=== PATIENT | female | born 1965 | race Caucasian/White ===

== ENCOUNTER 2023-10-24 13:48 | Emergency (ER) | payer OTHER, SELFPAY ==
[2023-10-24] VITALS (12 sets, daily range): BP systolic 92–127; BP diastolic 54–77; PULSE 104–119; RESP 12–31; TEMP 37.5–37.7; O2SAT 84–98; BMI 41.5
--- NOTE | 2023-10-24 14:14 | CTR_ITS ---
PROCEDURE INFORMATION: Exam: CT Head Without Contrast Exam date and time: 10/24/2023 3:40 PM Age: 58 years old Clinical indication: Altered mental status/memory loss; Additional info: AMS TECHNIQUE: Imaging protocol: Computed tomography of the head without contrast. Radiation optimization: All CT scans at this facility use at least one of these dose optimization techniques: automated exposure control; mA and/or kV adjustment per patient size (includes targeted exams where dose is matched to clinical indication); or iterative reconstruction. COMPARISON: No relevant prior studies available. RADIATION DOSE METRICS: Total DLP (mGy-cm): 875.65 FINDINGS: Brain: Normal. No hemorrhage. Unremarkable white matter. No mass effect. Cerebral ventricles: No ventriculomegaly. Paranasal sinuses: Visualized sinuses are unremarkable. No fluid levels. Mastoid air cells: Visualized mastoid air cells are well aerated. Bones: Unremarkable. No acute fracture. Soft tissues: Unremarkable. CT/CT head wo con* [id number] IMPRESSION: No acute intracranial abnormality.
--- NOTE | 2023-10-24 14:14 | XR_ITS ---
WS: [id number] Exam: XR chest 1V portable [id number] Date/Time of Exam: 10/24/2023 2:18 PM Reason For Exam: Possible Sepsis No priors. The lungs are clear and fully inflated. Normal cardiomediastinal silhouette. No pleural effusions. Un remarkable bony elements. XR/XR chest 1V portable [id number] IMPRESSION: 1. Negative chest.
--- NOTE | 2023-10-24 14:17 | ECG_ITS ---
[facility] Test Date: 2023-10-24 Pat Name: Ary Ambriz Department: Room: Gender: Female Assistant Store Director: : 1965 Requested By: Meg Lucas Order Number: [id number] Heidi MD: Isamar Foreman M.D. Measurements Intervals [place] Rate: 123 P: 31 MD: 152 QRS: -22 QRSD: 133 T: 128 QT: 304 QTc: 435 Interpretive Statements SINUS TACHYCARDIA LEFT BUNDLE BRANCH BLOCK [120+ ms QRS DURATION, 80+ ms Q/S IN V1/V2, 85+ ms R IN I/aVL/V5/V6] No previous ECG available for comparison Electronically Signed On 10-24-2023 18:30:35 CDT by Isamar Foreman M.D. [id number]
--- NOTE | 2023-10-24 14:25 | ED_ITS ---
HPI - General Adult 2 General: Chief complaint: General Medical Stated complaint: MHE Time Seen by Provider: 10/24/23 13:59 Source: patient Mode of arrival: ambulatory Limitations: no limitations History of Present Illness: 58-year-old female who is here with husb and stating that she has not felt well the last 2 days states she has been having generalized weakness low-grade fevers and some confusion patient here is able to answer most questions but is disoriented to time she answers 2020 when asked the year. She denies any pain anywhere denies any headache. No focal deficits Associated symptoms: Reports confusion; Deny chest pain, dyspnea, headache(s), nausea, rash or vomiting Related Data Allergies Allergy/AdvReac Type Severity Reaction Status Date / Time No Known Allergies Allergy Verified 10/24/23 14:05 Review of Systems 2 Const: Reports: fever(s), chills, body aches and fatigue; Denies: change in appetite Eyes: Denies: blurry vision or eye discomfort ENMT: Denies: throat pain or dental pain Card: Denies: chest pain Resp: Denies: dyspnea GI: Denies: abdominal pain, nausea, vomiting or diarrhea : Denies: dysuria Musc: Denies: neck pain or back pain Skin/Breast: Denies: rash Neuro: Reports: confusion; Denies: headache(s) Physical Exam 2 Const: COMMON NORMALS: alert EXAM LIMITATIONS: altered mental status O RIENTATION/CONSCIOUSNESS: Yes oriented to person and Yes oriented to place; not oriented to time HENMT: COMMON NORMALS: normocephalic and atraumatic HEAD & SCALP: n ormocephalic and atraumatic Eye: COMMON NORMALS: Equal, round and reactive pupils present and EOMs intact bilaterally PUPIL: Yes Equal, round and reactive pupils present Neck/C-Spine: COMMON NORMALS: full ROM and supple Chest: COMMONS NORMALS: normal inspection of the chest and normal palpation of entire chest wall Resp: COMMON NORMALS: normal respiratory effort, No retractions, No use of accessory muscles and clear to auscultation bilaterally AUSCULTATION: clear to auscultation bilaterally Cardio: COMMON NORMALS: regular rate, regular rhythm and No murmurs present (Cardio) RATE: regular rate RHYTHM: regular rhythm GI: COMMON NORMALS: Normal to inspection, nondistended, normoactive bowel sounds present, Soft to palpation, non-tender and no masses PALPATION: Yes Soft to palpation Extremity: COMMON NORMALS: normal to inspection and full ROM Neuro: COMMON NORMALS: moves all extremities and no focal motor deficits S ENSORIUM/ORIENTATION: Yes alert, Yes oriented to person, Yes oriented to place and No oriented to time CRANIAL NERVES: Yes CN normal except as noted S PEECH: speech normal Psych: COMMON NORMALS: Normal thought process present and cooperative T HOUGHT PROCESS: Normal thought process present Skin: COMMON NORMALS: no rashes or lesions noted and no wounds GENERAL SKIN EXAM: no rashes or lesions noted Course 2 Vital Signs: Vital signs: Vital Signs Temperature 99.5 F 10/24/23 21:00 Pulse Rate 106 H 10/24/23 22:00 Respiratory Rate 16 10/24/23 22:00 Blood Pressure 104/68 10/24/23 22:00 Pulse Oximetry 97 10/24/23 22:00 Oxygen Delivery Me thod Room Air 10/24/23 22:00 MDM - General Adult Medical Decision Making Patient presents here with fever lethargy she is found to have cholecystitis she has elevated liver enzymes concerning for ascending cholangitis I did speak to our surgeon on-call here Dr. Fair recommended transfer to [facility] for likely ERCP I did speak to [facility] was accepted the ICU there will transfer. Patient was given IV fluid boluses here along with antibiotics and started on Levophed. Patient had a delay on fluids and antibiotics as she had ripped out original IV and then was a difficult stick for another IV Medical Records I reviewed the patient's medical records. Lab Data I reviewed the patient's lab results. 10/24/23 16:14 10/24/23 16:[address] 10/24/23 14:14 IMPRESSION: No acute intracranial abnormality. Gallbladder Ultrasound 10/24/23 17:07 IMPRESSION: Cholelithiasis with sonographic findings consistent with acute cholecystitis. Chest X-Ray 10/24/23 17:45 IMPRESSION: Right central line terminates in the proximal right atrium. Abdomen/Pelvis CT 10/24/23 17:48 IMPRESSION: 1. Redemonstrated findings consistent with acute cholecystitis. 2. Hepatic steatosis. Laboratory Results WBC 5.50 10^3/uL (3.29-11.43) 10/24/23 16:14 RBC 4.77 10^6/uL (3.85-5.65) 10/24/23 16:14 Hgb 13.70 g/dL (11.27-16.99) 10/24/23 16:14 Hct 40.7 % (36-47) 10/24/23 16:14 MCV 85.3 fl (85-98) 10/24/23 16:14 MCH 28.7 pg (27-33) 10/24/23 16:14 MCHC 33.7 g/dL (30-55) 10/24/23 16:14 RDW 12.8 % (12.1-15.1) 10/24/23 16:14 Plt Count 47 10^3/cmm (157-399) L 10/24/23 16:14 MPV 9.7 fL (7.4-10.4) 10/24/23 16:14 Lymph % (Auto) Not Reportable 10/24/23 16:14 [place] % (Auto) Not Reportable 10/24/23 16:14 Lymph # (Auto) Not Reportable 10/24/23 16:14 [place] # (Auto) Not Reportable 10/24/23 16:14 Total Counted 100 (0-100) 10/24/23 16:14 Atypical Lymphs % 0.0 % (0-5) 10/24/23 16:14 Absolute Neutrophils 4.3 10^3/cmm (1.4-6.5) 10/24/23 16:14 Segmented Neutrophils 52 % 10/24/23 16:14 Abs Segm Neuts (Man) 2.9 10/cmm (1.6-7.1) 10/24/23 16:14 Band Neutrophils 26.0 % 10/24/23 16:14 Abs Band Neuts (Man) 1.4 10^3/cmm (0.0-1.2) H 10/24/23 16:14 Absolute Lymphocytes 0.3 10^3/cmm (1.2-3.4) L 10/24/23 16:14 Lymphocytes (Manual) 5 % 10/24/23 16:14 Monocytes (Manual) 8.0 % 10/24/23 16:14 Absolute Monocytes 0.4 10^3/cmm (0.1-0.6) 10/24/23 16:14 Eosinophils (Manual) 0 % 10/24/23 16:14 Absolute Eosinophils 0.0 10^3/cmm (0.0-0.7) 10/24/23 16:14 Basophils (Manual) 0.0 % 10/24/23 16:14 Absolute Basophils 0.0 10^3/cmm (0.0-0.2) 10/24/23 16:14 Metamyelocytes 4.0 % 10/24/23 16:14 Myelocytes 4.0 % 10/24/23 16:14 Promyelocytes 1.0 % 10/24/23 16:14 Platelet Estimate Decreased (Normal) L 10/24/23 16:14 PT 22.80 SECONDS (12.1-14.9) H 10/24/23 16:14 INR 1.94 (0.8-1.2) H 10/24/23 16:14 Sodium 132 mmol/L (136-145) L 10/24/23 16:14 Potassium 3.8 mmol/L (3.5-5.1) 10/24/23 16:14 Chloride 93 mmol/L (98-107) L 10/24/23 16:14 Carbon Dioxide 17 mmol/L (22-29) L 10/24/23 16:14 Anion Gap 25.8 (5-19) H 10/24/23 16:14 BUN 33 mg/dL (6-20) H 10/24/23 16:14 Creatinine 2.6 mg/dL (0.5-0.9) H 10/24/23 16:14 GFR Calculation 19.0 mL/min (90-130) L 10/24/23 16:14 Glucose 157 mg/dL (65-115) H 10/24/23 16:14 Calculated Osmolality 285 mOsm/kg (285-295) 10/24/23 16:14 Lactic Acid 8.5 mmol/L (0.5-2.2) H* 10/24/23 16:14 Lactic Acid (Sepsis) 8.2 mmol/L (0.5-2.2) H* 10/24/23 20:57 Calcium 8.3 mg/dL (8.5-10.5) L 10/24/23 16:14 Total Bilirubin 1.7 mg/dL (0.15-1.2) H 10/24/23 16:14 AST 2614 U/L (0-32) H 10/24/23 16:14 ALT 1600 U/L (0-33) H 10/24/23 16:14 Alkaline Phosphatase 64 U/L (35-105) 10/24/23 16:14 Total Protein 6.8 g/dL (6.6-8.7) 10/24/23 16:14 Albumin 3.8 g/dL (3.5-5.2) 10/24/23 16:14 Globulin 3.0 g/dL (1.3-4.6) 10/24/23 16:14 Lipase 11 U/L (13-60) L 10/24/23 16:14 Urine Color [place] (Yellow) A 10/24/23 17:02 Urine Appearance Turbid (CLEAR) A 10/24/23 17:02 Urine pH 5.0 (5-7) 10/24/23 17:02 Ur Specific [place] 1.020 (1.005-1.030) 10/24/23 17:02 Urine Protein 2+ (Negative) A 10/24/23 17:02 Urine Glucose (UA) Negative (Normal) 10/24/23 17:02 Urine Ketones Trace (Negative) 10/24/23 17:02 Urine Blood 2+ (Negative) A 10/24/23 17:02 Urine Nitrate Negative (Negative) 10/24/23 17:02 Urine Bilirubin 1+ (Negative) H 10/24/23 17:02 Urine Urobilinogen 1.0 mg/dL (Negative) 10/24/23 17:02 Ur Leukocyte Esterase Negative (Negative) 10/24/23 17:02 Urine RBC 5-10 /hpf (0-2) H 10/24/23 17:02 Urine WBC 5-10 /hpf (0-5) H 10/24/23 17:02 Ur Squamous Epith Cells 15-25 /hpf (0-5) H 10/24/23 17:02 Amorphous Sediment 1+ /hpf 10/24/23 17:02 Urine Bacteria 2+ /hpf (NONE) H 10/24/23 17:02 Hyaline Casts 5-10 /lpf H 10/24/23 17:02 Coarse Granular Casts 5-10 /lpf H 10/24/23 17:02 Hepatitis A IgM Ab Non-reactive (Nonreactive) 10/24/23 16:14 Hep Bs Antigen Non-reactive (Nonreactive) 10/24/23 16:14 Hep Bs Antibody < 3.5 (11.5-1000) L 10/24/23 16:14 Hep B Core Total Ab Non-reactive (Nonreactive) 10/24/23 16:14 Hepatitis C Antibody Non-reactive (Nonreactive) 10/24/23 16:14 SARS-CoV-2 Ag (Rapid) Negative (Negative) 10/24/23 16:54 All radiology interpretation(s) finalized by discharge EKG Data EKG 1: I personally reviewed and interpreted this EKG as follows: EKG interpretation date: 10/24/23 EKG interpretation time: 14:17 Interpretation: sinus tach hr 123 LBBB qrs 133 qtc 377 Computer generated interpretation: Head CT 10/24/23 14:14 IMPRESSION: No acute intracranial abnormality. Gallbladder Ultrasound 10/24/23 17:07 IMPRESSION: Cholelithiasis with sonographic findings consistent with acute cholecystitis. Chest X-Ray 10/24/23 17:45 IMPRESSION: Right central line terminates in the proximal right atrium. Abdomen/Pelvis CT 10/24/23 17:48 IMPRESSION: 1. Redemonstrated findings consistent with acute cholecystitis. 2. Hepatic steatosis. Critical Care Time 2 Critical Care Time: Critical Care Time: Yes Total Critical Care Time: 65 Attestation: The high probability of a clinically significant, sudden or life threatening deterioration of the patient's gi system(s) required my full and direct attention, intervention and personal management. The critical care time is as shown. This time is in addition to time spent performing any reported procedures but includes the following: [x] Data and vital sign review and interpretation [x] Patient assessment, examination and intervention [x] Documentation [x] Medication orders and management Discharge Plan Discharge Patient Disposition: Xfer Short-Term Hosp Clinical Impression: Acute cholecystitis, Ascending cholangitis Condition: Stable Coding Level of Care Code ED Religious Education Teacher for Gavi Mallory
[2023-10-24] MEDS: acetaminophen 500 mg Tablet 1000 MG PO (16:21)
[2023-10-24 16:27] LABS: Hematocrit 40.7 % (36-47); Mean Corpuscular HGB Conc 33.7 g/dL (30-55); Mean Corpuscular Hemoglobin 28.7 pg (27-33); Mean Corpuscular Volume 85.3 fl (85-98); Mean Platelet Volume 9.7 fL (7.4-10.4); Platelet Count 47 10^3/cmm (157-399); Red Blood Count 4.77 10^6/uL (3.85-5.65); Red Cell Distribution Width 12.8 % (12.1-15.1)
[2023-10-24 16:40] LABS: INR 1.94 (0.8-1.2)
[2023-10-24 16:44] LABS: Albumin Level 3.8 g/dL (3.5-5.2); Alkaline Phosphatase 64 U/L (35-105); Anion Gap 25.8 (5-19); Blood Urea Nitrogen 33 mg/dL (6-20); Calcium 8.3 mg/dL (8.5-10.5); Carbon Dioxide 17 mmol/L (22-29); Chloride 93 mmol/L (98-107); Creatinine Clr Calc Pharmacy 25.8518; Glucose 157 mg/dL (65-115); Osmolality Calculated 285 mOsm/kg (285-295); Potassium 3.8 mmol/L (3.5-5.1); Sodium 132 mmol/L (136-145); Total Bilirubin 1.7 mg/dL (0.15-1.2); Total Protein 6.8 g/dL (6.6-8.7)
[2023-10-24 16:48] LABS: Lactic Sepsis W/Reflex 8.5 mmol/L (0.5-2.2)
[2023-10-24 16:56] LABS: Alanine Aminotransferase 1600 U/L (0-33)
[2023-10-24 16:59] LABS: Absolute Neutrophil 4.3 10^3/cmm (1.4-6.5); Absolute Segmented Neutrophil 2.9 10/cmm (1.6-7.1); Band Neutrophils Absolute 1.4 10^3/cmm (0.0-1.2); Eosinophils 0 %; Lymphocytes 5 %; Lymphocytes Absolute 0.3 10^3/cmm (1.2-3.4); Monocytes Absolute 0.4 10^3/cmm (0.1-0.6); Platelet Estimate Decreased (Normal); Segmented Neutrophils 52 %; Slide Review Slide Review Perform; Total Cells Counted 100 (0-100)
[2023-10-24 17:03] LABS: Aspartate Amino Transferase 2614 U/L (0-32)
--- NOTE | 2023-10-24 17:07 | USR_ITS ---
PROCEDURE INFORMATION: Exam: US Abdomen, Limited; Right Upper Quadrant Exam date and time: 10/24/2023 7:54 PM Age: 58 years old Clinical indication: Abdominal pain; Localized; Right upper quadrant (ruq); Prior surgery; Surgery date: 6+ months; Surgery type: Unsure of dates. Patient says she has had an abdominal hernia repair. ; Additional info: Ruq pain TECHNIQUE: Imaging protocol: Real time ultrasound of the abdomen with image documentation. Limited exam focused on the right upper quadrant. COMPARISON: No relevant prior studies available. FINDINGS: Liver: No masses. Gallbladder: Multiple shadowing gallstones in the gallbladder. Gallbladder wall thickening up to 8 mm. Biliary ducts: The common bile duct measures 6 mm within normal limits. Pancreas: Poorly visualized due to overlying bowel gas. Right kidney: Right kidney measures 11.2 cm in length. No mass. No hydronephrosis. US/US gall bladder [id number] IMPRESSION: Cholelithiasis with sonographic findings consistent with acute cholecystitis.
[2023-10-24 17:17] LABS: Lipase 11 U/L (13-60)
[2023-10-24] MEDS: vancomycin 1,000 MG in sodium chloride 0.9% 250 ML 250 MG IV (17:41)
[2023-10-24] MEDS: piperacillin-tazobactam 3.375 GM in sodium chloride 0.9% (plus) 50 ML IV (17:41)
--- NOTE | 2023-10-24 17:45 | XRR_ITS ---
PROCEDURE INFORMATION: Exam: XR Chest Exam date and time: 10/24/2023 5:47 PM Age: 58 years old Clinical indication: Other vascular access device placement or adjustment; Central line, non-tunnelled; Patient HX: Check S/P central line placement TECHNIQUE: Imaging protocol: Radiologic exam of the chest. Views: 1 view. COMPARISON: CR XR chest 1V portable [id number] 10/24/2023 2:21 PM FINDINGS: Tubes, catheters and devices: Right central line terminates in the proximal right atrium. Lungs: Unremarkable. No consolidation. Pleural spaces: Unremarkable. No pleural effusion. No pneumothorax. Heart/Mediastinum: Unremarkable. No cardiomegaly. Bones/joints: Unremarkable. XR/XR chest 1V portable [id number] IMPRESSION: Right central line terminates in the proximal right atrium.
--- NOTE | 2023-10-24 17:48 | CTR_ITS ---
PROCEDURE INFORMATION: Exam: CT Abdomen And Pelvis Without Contrast Exam date and time: 10/24/2023 8:26 PM Age: 58 years old Clinical indication: Abnormal findings; Abnormal lab test; Abnormal kidney function lab tests and elevated liver enzymes; Patient HX: Hypotensive with ck and high liver enzymes. Ast 2614/alt 1600. Lactic acid 8.5. TECHNIQUE: Imaging protocol: Computed tomography of the abdomen and pelvis without contrast. Radiation optimization: All CT scans at this facility use at least one of these dose optimization techniques: automated exposure control; mA and/or kV adjustment per patient size (includes targeted exams where dose is matched to clinical indication); or iterative reconstruction. COMPARISON: US gall bladder [id number] 10/24/2023 7:54 PM RADIATION DOSE METRICS: Total DLP (mGy-cm): 989.98 FINDINGS: Liver: 3.2 cm simple cyst noted in the left hepatic lobe. Hepatic steatosis. Gallbladder and biliary ducts: Calcified stones noted within the gallbladder with inflammatory changes at the gallbladder fossa. No ductal dilation. Pancreas: Normal. No ductal dilation. Spleen: Normal. No splenomegaly. Adrenal glands: Normal. No mass. Kidneys and ureters: Normal. No hydronephrosis. Stomach and bowel: Unremarkable. No obstruction. No mucosal thickening. Appendix: No evidence of appendicitis. Intraperitoneal space: Unremarkable. No free air. No significant fluid collection. Vasculature: Unremarkable. No abdominal aortic aneurysm. Lymph nodes: Unremarkable. No enlarged lymph nodes. Urinary bladder: Unremarkable as visualized. Reproductive: Unremarkable as visualized. Bones/joints: No acute fracture. Soft tissues: Unremarkable. CT/CT abdomen pelvis wo con [id number] IMPRESSION: 1. Redemonstrated findings consistent with acute cholecystitis. 2. Hepatic steatosis.
[2023-10-24] MEDS: norepinephrine 4 MG/250 ML BAG 30 MG IV (17:58)
[2023-10-24] MEDS: norepinephrine 4 MG/250 ML BAG 37.5 MG IV (17:59)
[2023-10-24 18:08] LABS: Reflex Lactate Order REFLEX LACTIC ORDERD
[2023-10-24 18:11] LABS: Hepatitis A Antibody IgM Non-Reactive (Nonreactive); Hepatitis B Core AB, Total Non-Reactive (Nonreactive); Hepatitis B Surface AB < 3.5 (11.5-1000); Hepatitis B Surface Antigen Non-Reactive (Nonreactive); Hepatitis C Virus Antibody Non-Reactive (Nonreactive)
[2023-10-24 18:36] LABS: Charge for UA Resulting for Rev
[2023-10-24 18:43] LABS: Bilirubin Urine 1+ (Negative); Blood Urine 2+ (Negative); Glucose Urine UA Negative (Normal); Ketones Urine Trace (Negative); Leukocyte Esterase Urine Negative (Negative); Nitrate Urine Negative (Negative); Protein Urine 2+ (Negative); Urine Appearance Turbid (CLEAR)
[2023-10-24 18:45] LABS: Urine Color Orange (Yellow)
--- NOTE | 2023-10-24 18:53 | PC.NURSE ---
patient straight cath'd for urine. no complications.
[2023-10-24 18:59] LABS: SARS Covid-2 Antigen Negative (Negative)
[2023-10-24 19:07] LABS: Amorphous Sediment Urine 1+ /hpf; Bacteria Urine 2+ /hpf; Squamous Epithelial Cell Urine 15-25 /hpf (0-5); UA Manual Slide Review YES; UA Slide Review UA Slide Review Perf
--- NOTE | 2023-10-24 20:49 | P.HP_ITS ---
Providers/Chief Complaint 2 Chief Complaint: MHE History of Present Illness Ary Ambriz is a 58 year old female Medications/Allergies Allergies Allergy/AdvReac Type Severity Reaction Status Date / Time No Known Allergies Allergy Verified 10/24/23 14:05 Vitals/I&O/Wt Last Vital Signs Temp 99.9 F H 10/24/23 13:52 Pulse 107 H 10/24/23 20:48 Resp 22 H 10/24/23 20:48 BP 103/63 10/24/23 20:48 Pulse Ox 97 10/24/23 20:48 O2 Del Method Nasal Cannula 10/24/23 18:43 10/24/23 10/24/23 10/24/23 06:59 14:59 22:59 Intake Total 33.625 / 33.625 Balance 33.625 / 33.625 Weight last 48 hrs Weight 99.79 kg Data 10/24/23 16:14 10/24/23 16:14 Micro: Microbiology 10/24/23 16:14 Blood Culture - Preliminary Blood SPECIMEN COLLECTED 10/24/23 15:16 Blood Culture - Preliminary Blood SPECIMEN COLLECTED Coding Level of Care Code Acute Code for Chg Fwd
[2023-10-24 21:31] LABS: Lactic Acid level (Lactate) 8.2 mmol/L (0.5-2.2)
[2023-10-24] MEDS: sodium chloride 0.9% 1,000 ML 125 ML IV (21:42)
[2023-10-24 22:41] LABS: ABG PCO2 25.5 mmHg (35-45); ABG PH Result 7.31 (7.35-7.45); Arterial Blood Gas Hematocrit 38.5 % (37-47); Base Excess ABG -11.6 mmol/L (-2.0-2.0); Blood Gas Allen Test Pos; Blood Gas Sample Site Radial, right; Blood Gas Sample Type Arterial; HCO3 ABG 12.9 mmol/L (22-26); Oxygen Device ROOM AIR; PO2 ABG 74.4 mmHg (80.0-100.0)
[2023-10-24] MEDS: norepinephrine 4 MG/250 ML BAG 52.5 MG IV (22:49)
[2023-10-24] MEDS: morphine 4 mg/mL SDV 1 mL 2 MG IVP (23:45)
[2023-10-25] MEDS: piperacillin-tazobactam 3.375 GM in sodium chloride 0.9% (plus) 50 ML IV (00:11)
== END 2023-10-25 01:28 | disposition critical access hospital (66) ==
PROVIDERS: Emergency Medicine; Emergency Provider Emergency Medicine
DX: K81.0 Acute cholecystitis (principal); K83.09 Other cholangitis; R00.0 Tachycardia, unspecified; I44.7 Left bundle-branch block, unspecified; Z11.52 Encounter for screening for COVID-19
CPT/HCPCS: 36415; 36600; 70450; 71045; 74176; 76705; 80053; 81003; 81015; 82803; 83605; 83690; 85007; 85025; 85610; 86705; 86706; 86709; 86803; 87040; 87340; 87426; 93005; 96365; 96366; 96375; 99285; J2270; J2543; J3370; J7030; J7050

== ENCOUNTER 2024-05-27 18:11 | Emergency (ER) | payer OTHER, SELFPAY ==
[2024-05-27 18:14] VITALS: BP 130/74; PULSE 58; RESP 16; TEMP 36.7; O2SAT 95; BMI 35.9
[2024-05-27 18:19] VITALS: BP 130/74; PULSE 63; RESP 16; O2SAT 97
--- NOTE | 2024-05-27 18:22 | XRR_ITS ---
PROCEDURE INFORMATION: Exam: XR Chest Exam date and time: 05/27/2024 6:22 PM Age: 59 years old Clinical indication: Other: Syncope TECHNIQUE: Imaging protocol: Radiologic exam of the chest. Views: 1 view. COMPARISON: CR XR chest 1V portable [id number] 10/24/2023 2:21 PM FINDINGS: Lungs: Unremarkable. No consolidation. Pleural spaces: Unremarkable. No pleural effusion. No pneumothorax. Heart/Mediastinum: Unremarkable. No cardiomegaly. Bones/joints: Unremarkable. XR/XR chest 1V portable [id number] IMPRESSION: No acute findings.
--- NOTE | 2024-05-27 18:22 | ECG_ITS ---
[facility] Test Date: 2024-05-27 Pat Name: Ary Ambrzi Department: Room: Gender: Female Call Manager: : 1965 Requested By: Avila Olivares Order Number: [id number] Gordon MD: Chris Ramon M.D. Measurements Intervals [place] Rate: 57 P: 41 RI: 171 QRS: -19 QRSD: 144 T: 48 QT: 423 QTc: 414 Interpretive Statements SINUS BRADYCARDIA LEFT BUNDLE BRANCH BLOCK [120+ ms QRS DURATION, 80+ ms Q/S IN V1/V2, 85+ ms R IN I/aVL/V5/V6] Compared to ECG 10/24/2023 14:17:07 Sinus tachycardia no longer present Electronically Signed On 05-29-2024 18:19:53 CDT by Chris Ramon M.D. [email or web address]
--- NOTE | 2024-05-27 18:26 | W.ED.SYNCOPE ---
HPI - Syncope General: Chief Complaint: Syncope Stated Complaint: near syncope Time Seen by Provider: 05/27/24 18:18 History of Present Illness: Patient presents to the ER with a near syncopal episode. Patient was sitting at a restaurant when she felt lightheaded dizzy felt she will pass out but she did not pass out. She is all back to normal now. Patient did states she had to the tips of her fingers removed today at [facility] in [place].. She said this was due to her being septic and on pressors during her previous stay. Patient has no history of syncope denies any nausea vomiting diarrhea constipation fevers chills cough cold sore throats etc. Related Data Allergies Allergy/AdvReac Type Severity Reaction Status Date / Time No Known Allergies Allergy Verified 10/24/23 14:05 Review of Systems General: Reports: 10 or more systems reviewed and unremarkable except in HPI and below Physical Exam Const: COMMON NORMALS: no acute distress, average body habitus, patient oriented x3, no limitations, healthy appearing, alert and well nourished HENMT: COMMON NORMALS: normocephalic, hearing grossly normal bilaterally, external ears normal, Normal external nose present, moist oral mucous membranes and oropharynx normal HEAD & SCALP: normocephalic NOSE: Normal external nose present EXTERNAL EAR: Yes external ears normal Neck/C-Spine: COMMON NORMALS: full ROM, no lymphadenopathy, supple, no meningeal signs, no JVD and Thyroid normal THYROID: Thyroid normal Chest: COMMONS NORMALS: normal inspection of the chest and normal palpation of entire chest wall Resp: COMMON NORMALS: normal respiratory effort, No retractions, No use of accessory muscles and clear to auscultation bilaterally AUSCULTATION: clear to auscultation bilaterally Cardio: COMMON NORMALS: no JVD, regular rate, regular rhythm, S1 normal heart sound present, S2 normal heart sound present, No gallops present (Cardio), No clicks present (Cardio), No murmurs present (Cardio) and No rub (Cardio) RATE: regular rate RHYTHM: regular rhythm HEART SOUNDS: S1 normal heart sound present and S2 normal heart sound present GI: COMMON NORMALS: Normal to inspection, nondistended, normoactive bowel sounds present, Soft to palpation, non-tender, No hepatosplenomegaly present and no masses PALPATION: Yes Soft to palpation and Yes No hepatosplenomegaly present Neuro: COMMON NORMALS: patient oriented x3 SENSORIUM/ORIENTATION: Yes alert MENINGEAL SIGNS: Yes no meningeal signs Course Vital Signs: Vital signs: Vital Signs Temperature 98.1 F 05/27/24 18:14 Pulse Rate 59 L 05/27/24 19:49 Respiratory Rate 16 05/27/24 18:19 Blood Pressure 134/78 05/27/24 19:49 Pulse Oximetry 98 05/27/24 19:49 Oxygen Delivery Me thod Room Air 05/27/24 18:19 MDM - Syncope Medical Decision Making Lab work was reviewed as well as chest x-ray, EKG all essentially benign. Patient not have any episodes while she was here. Discussed the results with her and her . Patient be discharged home. Medical Records I reviewed the patient's medical records. Lab Data I reviewed the patient's lab results. 05/27/24 18:35 05/27/24 18:35 Radiology Impressions Chest X-Ray 05/27/24 18:22 IMPRESSION: No acute findings. Laboratory Results WBC 7.40 10^3/uL (3.29-11.43) 05/27/24 18:35 RBC 4.27 10^6/uL (3.85-5.65) 05/27/24 18:35 Hgb 12.00 g/dL (11.27-16.99) 05/27/24 18:35 Hct 37.3 % (36-47) 05/27/24 18:35 MCV 87.4 fl (85-98) 05/27/24 18:35 MCH 28.1 pg (27-33) 05/27/24 18:35 MCHC 32.2 g/dL (30-55) 05/27/24 18:35 RDW 12.8 % (12.1-15.1) 05/27/24 18:35 Plt Count 253 10^3/cmm (157-399) 05/27/24 18:35 MPV 9.2 fL (7.4-10.4) 05/27/24 18:35 Neut % (Auto) 73.3 % 05/27/24 18:35 Lymph % (Auto) 18.0 % 05/27/24 18:35 Mccormick % (Auto) 6.5 % 05/27/24 18:35 Eos % (Auto) 0.9 % 05/27/24 18:35 Baso % (Auto) 0.8 % 05/27/24 18:35 Neut # (Auto) 5.42 10^3/uL (1.8-7.7) 05/27/24 18:35 Lymph # (Auto) 1.3 10^3/uL (0.8-4.8) 05/27/24 18:35 Mccormick # (Auto) 0.5 10^3/uL (0.2-0.9) 05/27/24 18:35 Eos # (Auto) 0.1 10^3/uL (0.0-0.8) 05/27/24 18:35 Baso # (Auto) 0.1 10^3/uL (0.0-0.1) 05/27/24 18:35 Nucleated RBC % (auto) 0 % 05/27/24 18:35 Nucleated RBCs # 0.0 /100WBC 05/27/24 18:35 Sodium 139 mmol/L (136-145) 05/27/24 18:35 Potassium 4.4 mmol/L (3.5-5.1) 05/27/24 18:35 Chloride 102 mmol/L (98-107) 05/27/24 18:35 Carbon Dioxide 24 mmol/L (22-29) 05/27/24 18:35 Anion Gap 17.4 (5-19) 05/27/24 18:35 BUN 16 mg/dL (6-20) 05/27/24 18:35 Creatinine 1.0 mg/dL (0.5-0.9) H 05/27/24 18:35 GFR Calculation 56.9 mL/min (90-130) L 05/27/24 18:35 Glucose 132 mg/dL (65-115) H 05/27/24 18:35 POC Glucose 133 mg/dL (70-110) H 05/27/24 18:30 Calculated Osmolality 291 mOsm/kg (285-295) 05/27/24 18:35 Calcium 9.4 mg/dL (8.5-10.5) 05/27/24 18:35 Magnesium 1.9 mg/dL (1.7-2.3) 05/27/24 18:35 Total Bilirubin 0.3 mg/dL (0.15-1.2) 05/27/24 18:35 AST 19 U/L (0-32) 05/27/24 18:35 ALT 20 U/L (0-33) 05/27/24 18:35 Alkaline Phosphatase 88 U/L (35-105) 05/27/24 18:35 Troponin T Baseline 7 ng/L (0-10) 05/27/24 18:35 Total Protein 6.7 g/dL (6.6-8.7) 05/27/24 18:35 Albumin 4.5 g/dL (3.5-5.2) 05/27/24 18:35 Globulin 2.2 g/dL (1.3-4.6) 05/27/24 18:35 Urine Color Yellow (Yellow) 05/27/24 19:28 Urine Appearance Clear (CLEAR) 05/27/24 19:28 Urine pH 6.5 (5-7) 05/27/24 19:28 Ur Specific Shidler 1.015 (1.005-1.030) 05/27/24 19:28 Urine Protein Neg (Negative) 05/27/24 19:28 Urine Glucose (UA) Norm (Normal) 05/27/24 19:28 Urine Ketones Negative (Negative) 05/27/24 19:28 Urine Blood Neg (Negative) 05/27/24 19:28 Urine Nitrate Negative (Negative) 05/27/24 19:28 Urine Bilirubin Neg (Negative) 05/27/24 19:28 Urine Urobilinogen Norm mg/dL (Negative) 05/27/24 19:28 Ur Leukocyte Esterase Negative (Negative) 05/27/24 19:28 Urine RBC 0-2 /hpf (0-2) 05/27/24 19:28 Urine WBC 11-20 /hpf (0-5) H 05/27/24 19:28 Ur Squamous Epith Cells 0-5 /hpf (0-5) 05/27/24 19:28 Amorphous Sediment Not Reportable 05/27/24 19:28 Urine Bacteria None seen /hpf (NONE) 05/27/24 19:28 Hyaline Casts 1.65 /lpf 05/27/24 19:28 All radiology interpretation(s) finalized by discharge Discharge Plan Discharge Patient Disposition: Home Clinical Impression: Pre-syncope Condition: Stable Discharge Orders: Discharge ED (Routine); Ordered 05/27/24 Ordered By: Avila Olivares Referrals: Anuradha Glover MD [Primary Care Provider] - 1 week Patient Instructions: Near Syncope (ED) Activity Restrictions/Additional Instructions: Activity restrictions/additional instructions: Thank you for choosing [facility] for your healthcare needs today. Please realize that you were seen in the emergency department and that we are providing you with an emergency medical screening exam and this may not be a complete and all exclusive of all testing and/or medical workup we may need to determine your element or severity of your illness. It is very important that you follow-up as instructed with your primary care provider or specialist for the additional evaluation and to discuss your medical treatment plan. You may return to the emergency department should you have concerns or if your condition changes or worsens in any way. Print Language: Libyan Coding Level of Care Code ED Director [employer] for Gavi Mallory
[2024-05-27 18:33] LABS: Glucose Point of Care 133 mg/dL (70-110)
[2024-05-27 18:50] LABS: Basophils # 0.1 10^3/uL (0.0-0.1); Basophils % 0.8 %; Eosinophils # 0.1 10^3/uL (0.0-0.8); Eosinophils % 0.9 %; Hematocrit 37.3 % (36-47); Lymphocytes # 1.3 10^3/uL (0.8-4.8); Mean Corpuscular HGB Conc 32.2 g/dL (30-55); Mean Corpuscular Hemoglobin 28.1 pg (27-33); Mean Corpuscular Volume 87.4 fl (85-98); Mean Platelet Volume 9.2 fL (7.4-10.4); Monocytes # 0.5 10^3/uL (0.2-0.9); Monocytes % 6.5 %; Neutrophils # 5.42 10^3/uL (1.8-7.7); Neutrophils % 73.3 %; Nucleated Red Blood Cells % 0 %; Platelet Count 253 10^3/cmm (157-399); Red Blood Count 4.27 10^6/uL (3.85-5.65); Red Cell Distribution Width 12.8 % (12.1-15.1)
[2024-05-27 19:01] LABS: Troponin(5th) Baseline 7 ng/L (0-10)
[2024-05-27 19:15] LABS: Alanine Aminotransferase 20 U/L (0-33); Albumin Level 4.5 g/dL (3.5-5.2); Alkaline Phosphatase 88 U/L (35-105); Anion Gap 17.4 (5-19); Aspartate Amino Transferase 19 U/L (0-32); Blood Urea Nitrogen 16 mg/dL (6-20); Calcium 9.4 mg/dL (8.5-10.5); Carbon Dioxide 24 mmol/L (22-29); Chloride 102 mmol/L (98-107); Creatinine Clr Calc Pharmacy 61.1358; Globulin 2.2 g/dL (1.3-4.6); Glomerular Filtration Rate 56.9 mL/min (90-130); Glucose 132 mg/dL (65-115); Magnesium 1.9 mg/dL (1.7-2.3); Osmolality Calculated 291 mOsm/kg (285-295); Potassium 4.4 mmol/L (3.5-5.1); Sodium 139 mmol/L (136-145); Total Bilirubin 0.3 mg/dL (0.15-1.2); Total Protein 6.7 g/dL (6.6-8.7)
[2024-05-27 19:19] VITALS: BP 126/79
[2024-05-27 19:44] LABS: Bacteria Urine None Seen /hpf; Hyaline Casts Urine 1.65 /lpf; RBC Urine 0-2 /hpf (0-2); Squamous Epithelial Cell Urine 0-5 /hpf (0-5)
[2024-05-27 19:48] LABS: Add Urine Microscopic? YES; Bilirubin Urine Neg (Negative); Blood Urine Neg (Negative); Glucose Urine UA Norm (Normal); Ketones Urine Negative (Negative); Leukocyte Esterase Urine Negative (Negative); Nitrate Urine Negative (Negative); Protein Urine Neg (Negative); Specific Gravity, Urine 1.015 (1.005-1.030); Urine Appearance Clear (CLEAR); Urine Color Yellow (Yellow); Urobilinogen Urine Norm (Negative); pH Urine 6.5 (5-7)
[2024-05-27 19:49] VITALS: BP 134/78; PULSE 59; O2SAT 98
[2024-05-27 20:34] VITALS: BP 120/78; PULSE 61; O2SAT 96
== END 2024-05-27 20:38 | disposition home or self-care (01) ==
PROVIDERS: Emergency Provider Emergency Medicine; PCP Family Medicine
DX: R55 Syncope and collapse (principal)
CPT/HCPCS: 36415; 36416; 71045; 80053; 81001; 82962; 83735; 84484; 85025; 93005; 99285

== ENCOUNTER 2024-11-12 07:40 | Outpatient (CLI) | payer OTHER, SELFPAY ==
--- NOTE | 2024-11-12 07:44 | US_ITS ---
WS: [id number] RIGHT UPPER QUADRANT ULTRASOUND HISTORY: ELEVATED LFTS COMPARISON: 10/24/2023 Liver: 14.5 cm in length. Liver is normal size. Hepatic cyst along the diaphragmatic surface measures 2.7 x 2.0 x 2.1 cm. Cyst was noted on prior noncontrast CT from 10/24/2023. Portal Vein: Normal hepatopetal flow with monophasic waveform. Gallbladder: Prior cholecystectomy. CBD: 0.7 cm Pancreas: Normal size and echogenicity. Right kidney: 10.4 cm in length. Normal size and echogenicity. No hydronephrosis or mass. Aorta and IVC: Unremarkable abdominal aorta and IVC. No ascites. US/US abdomen limited [id number] IMPRESSION: 1. Prior cholecystectomy. 2. Normal size liver with hepatic cyst, LEFT lobe. 3. No intrahepatic bile duct dilatation.
== END 2024-11-12 07:41 | disposition home or self-care (01) ==
LOC: RAD 07:41
PROVIDERS: PCP Nurse Practitioner Family; Visit Provider Nurse Practitioner Family
DX: R74.8 Abnormal levels of other serum enzymes (principal); Z90.49 Acquired absence of other specified parts of digestive tract
CPT/HCPCS: 76705